=== PATIENT | female | born 1955 | race Caucasian/White ===

== ENCOUNTER → 2016-05-04 | Outpatient (CLI) | payer BC ==
[~2016-05-04] MED LIST: CONTRAVE ER 8-1 EACH PO; EFFEXOR XR150 MG PO; HYDROCHLOROTH12.5 M1 PO; MELOXICAM7.5 MG PO; NEXIUM40 MG PO; NORCO 7.5-3251 EACH PO; VITAMIN B COMP1 EACH PO; VITAMIN D1000 UNI1 PO
== END ==
LOC: KOH-I 08:00
DX: R14.0 Abdominal distension (gaseous) (principal); R10.11 Right upper quadrant pain; K80.20 Calculus of gallbladder without cholecystitis without obstruction
CPT/HCPCS: 76705

== ENCOUNTER → 2016-06-07 | Outpatient (CLI) | payer BC ==
[2016-06-07 09:16] LABS: BUN/CREATININE RATIO 16 (0-10)
== END ==
LOC: OPSV2 07:54
PROVIDERS: Anesthesiology
DX: Z01.812 Encounter for preprocedural laboratory examination (principal); I10 Essential (primary) hypertension; Z79.899 Other long term (current) drug therapy
CPT/HCPCS: 36415; 80048

== ENCOUNTER → 2016-06-13 | Day surgery (SDC) | payer BC | END | disposition home or self-care (01) | LOC: OR 07:19 | PROVIDERS: Surgery | PROC: 0FT44ZZ Resection of Gallbladder, Percutaneous Endoscopic Approach (ICD-10-PCS; principal; 2016-06-13 09:20) | DX: K80.10 Calculus of gallbladder with chronic cholecystitis without obstruction (principal); F41.9 Anxiety disorder, unspecified; E66.9 Obesity, unspecified; M15.9 Polyosteoarthritis, unspecified; I10 Essential (primary) hypertension; M81.0 Age-related osteoporosis without current pathological fracture; E53.8 Deficiency of other specified B group vitamins; E55.9 Vitamin D deficiency, unspecified; K21.9 Gastro-esophageal reflux disease without esophagitis; Z79.899 Other long term (current) drug therapy; F17.210 Nicotine dependence, cigarettes, uncomplicated; Z87.19 Personal history of other diseases of the digestive system; Z79.52 Long term (current) use of systemic steroids; Z98.51 Tubal ligation status | CPT/HCPCS: 36415; 80074; 86706; 87390; J0295; J1200; J1885; J2250; J2405; J2710; J2765; J3010; J7030; J7050; J7120 ==

== ENCOUNTER → 2020-03-24 | Outpatient (CLI) | payer BC ==
[~2020-03-24] MED LIST changes: +ACID REDUCER20 MG PO; +B12 PO; +CALCIUM/VIT D PO; +COLACE100 MG PO; +CYCLOBENZAPRINE5 MG PO; +DESVENLAFAXINE50 MG PO; +ELIQUIS5 MG PO; +FORTEO INJ; +HYDROCHLOROTH12.5 MG PO; +HYDROCODON-ACE1 EAC2 PO; +KAPSPARGO SPRIN25 MG PO; +LINZESS145 MCG PO; +METOPROLOL PO; +MULTAQ400 MG PO; +PANTOPRAZOLE SO40 MG PO; +PEPTO-BISM262 MG/15 PO; +PRESTIQ PO; +TUMS DUAL ACTI1 EACH PO; +VIT B-12 PO; +VITAMIN D325 MCG PO; +ZANTAC150 MG PO
[2020-03-24 09:51] LABS: HEMOGLOBIN 12.9 gm/dl (12.3-15.3); RED BLOOD COUNT 4.59 M/UL (4.00-5.10); WHITE BLOOD COUNT 6.2 K/UL (4.5-11.0)
[2020-03-24 10:09] LABS: BUN/CREATININE RATIO 15 (0-10)
== END ==
LOC: OPSV2 08:00
PROVIDERS: Anesthesiology
DX: Z01.818 Encounter for other preprocedural examination (principal); K21.9 Gastro-esophageal reflux disease without esophagitis; K44.9 Diaphragmatic hernia without obstruction or gangrene; R94.31 Abnormal electrocardiogram [ECG] [EKG]
CPT/HCPCS: 36415; 80048; 85025; 93005

== ENCOUNTER 2020-03-31 06:36 | Day surgery (SDC) | payer BC ==
[~2020-03-31] VITALS: Ht 154.9 cm; Wt 90.7 kg
[~2020-03-31 06:36] MED LIST changes: -ACID REDUCER20 MG PO; -COLACE100 MG PO; -HYDROCODON-ACE1 EAC2 PO; -KAPSPARGO SPRIN25 MG PO; -MULTAQ400 MG PO; -PEPTO-BISM262 MG/15 PO; -TUMS DUAL ACTI1 EACH PO; -VITAMIN D325 MCG PO
[2020-03-31] MEDS ORDERED: MULTAQ400 MG PO (07:06)
[2020-03-31] MEDS ORDERED: KAPSPARGO SPRIN25 MG PO (07:06)
[2020-03-31] MEDS ORDERED: CYCLOBENZAPRINE5 MG PO (07:06)
[2020-03-31] MEDS ORDERED: PEPTO-BISM262 MG/15 PO (07:07)
[2020-03-31] MEDS ORDERED: VITAMIN D325 MCG PO (07:07)
[2020-03-31] MEDS ORDERED: TUMS DUAL ACTI1 EACH PO (07:08)
[2020-03-31] MEDS ORDERED: ACID REDUCER20 MG PO (07:09)
[2020-04-01] MEDS ORDERED: HYDROCODON-ACE1 EAC2 PO ×2 (12:54→13:08)
[2020-04-01] MEDS ORDERED: COLACE100 MG PO (12:54)
== END 2020-04-01 14:06 | disposition home or self-care (01) ==
LOC: OR 06:36 → MED SURG 4 12:41 → OR 04-01 14:06
DX: K21.9 Gastro-esophageal reflux disease without esophagitis (principal); K44.9 Diaphragmatic hernia without obstruction or gangrene; F41.9 Anxiety disorder, unspecified; F32.9 Major depressive disorder, single episode, unspecified; I48.91 Unspecified atrial fibrillation; E78.5 Hyperlipidemia, unspecified; I10 Essential (primary) hypertension; M81.0 Age-related osteoporosis without current pathological fracture; E66.01 Morbid (severe) obesity due to excess calories; Z87.891 Personal history of nicotine dependence; Z68.35 Body mass index [BMI] 35.0-35.9, adult; Z79.01 Long term (current) use of anticoagulants; Z79.899 Other long term (current) drug therapy
CPT/HCPCS: 71045; 74246; C1781; J0690; J1100; J1170; J1650; J2001; J2250; J2270; J2405; J2550; J2704; J2710; J2765; J3010; J3480; J7030; J7120; Q9963

== ENCOUNTER → 2020-11-05 | Outpatient (CLI) | payer BC ==
[~2020-11-05] MED LIST changes: +ACID REDUCER20 MG PO; +COLACE100 MG PO; +HYDROCODON-ACE1 EAC2 PO; +KAPSPARGO SPRIN25 MG PO; +MULTAQ400 MG PO; +PEPTO-BISM262 MG/15 PO; +TUMS DUAL ACTI1 EACH PO; +VITAMIN D325 MCG PO
== END ==
LOC: RAD 16:54
DX: J01.90 Acute sinusitis, unspecified (principal); J20.9 Acute bronchitis, unspecified; R91.8 Other nonspecific abnormal finding of lung field
CPT/HCPCS: 71046